=== PATIENT | female | born 1995 | race Caucasian/White ===

== ENCOUNTER 2017-02-24 23:33 | Emergency (ER) | payer OTHER ==
[~2017-02-24] VITALS: Ht 167.6 cm; Wt 81.6 kg
[~2017-02-24 23:33] MED LIST: METR500T21 PO; RT-ALBUINH IH; birth control
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
[2017-02-25] MEDS: morphine INJ 10 MG/ML 1ML (SYR OR VIAL) IJ ONE (01:22)
[2017-02-25] MEDS: KETOROLAC 60 MG/2 ML VIAL IM ONE (01:22)
[2017-02-25] MEDS ORDERED: RX-HYDROCODONE/APAP 5/325 MG #4 TAB PK PO PRN (02:30)
[2017-02-25] MEDS: RX-HYDROCODONE/APAP 5/325 MG #4 TAB PK PO ONE (02:31)
[2017-02-25] MEDS ORDERED: HYDR-87 PO (02:35)
[2017-02-25 02:47] VITALS: BP 133/87
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
--- NOTE | 2017-02-25 07:37 | Diagnostic Imaging Report ---
INDICATION: Right foot injury. COMPARISON: None. FINDINGS: 3 views, which are labeled left on the radiograph, of the right foot demonstrate an unusual figuration of the talonavicular joint. There is a questionable bony fragment seen involving the anterior talus. This also could be congenital in nature. Consider CT imaging. IMPRESSION: Questionable talar fracture with subluxation of the talocalcaneal joint. Recommend CT imaging. Dictated by: Dictated on workstation # [id number]
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
== END 2017-02-25 03:00 | disposition home or self-care (01) ==
LOC: EDUNIT# 23:33 → ER 23:35
DX: S92.101A Unspecified fracture of right talus, initial encounter for closed fracture (principal); S92.251A Displaced fracture of navicular [scaphoid] of right foot, initial encounter for closed fracture; S93.01XA Subluxation of right ankle joint, initial encounter; F32.9 Major depressive disorder, single episode, unspecified; F41.9 Anxiety disorder, unspecified; J45.909 Unspecified asthma, uncomplicated; V47.5XXA Car driver injured in collision with fixed or stationary object in traffic accident, initial encounter
CPT/HCPCS: 73610; 73630; 73700; 99284